=== PATIENT | female | born 1975 | race American Indian/Alaskan Native ===

== ENCOUNTER 2020-10-10 06:44 | Day surgery (SDC) | payer OTHER ==
[2020-10-10] MEDS ORDERED: fentaNYL 100 MCG/2 ML INJ ONE (07:03)
[2020-10-10] MEDS ORDERED: dexAMETHasone 20 MG/5 ML VIAL ONE (07:03)
[2020-10-10] MEDS ORDERED: LIDOCAINE MPF (2%) 20 MG/1 ML VIAL 5 ML ONE (07:03)
[2020-10-10] MEDS ORDERED: ONDANSETRON 4 MG/2 ML INJ ONE (07:03)
[2020-10-10] MEDS ORDERED: propofoL 200 MG/20 ML VIAL IV ONE (07:04)
[2020-10-10] MEDS ORDERED: SILVER NITRATE APPLICATOR 1 EA TP ONE (07:15)
[2020-10-10] MEDS ORDERED: METHYLERGONOVINE MALEATE 0.2 MG/ML VIAL IM ONE (07:17)
--- NOTE | 2020-10-10 07:19 | Short Stay Summary ---
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 The patient has been unable to have penetration of her vagina secondary to stenosis of the vagina. Pelvic ultrasound demonstrated evidence of a fluid collection in the vaginal vault measuring 7.3 cm. The patient denies any vaginal bleeding or any leakage of fluid from the vagina. She has been unable to have sexual intercourse for years. - History Principal diagnosis: Hematocolpos Past Medical History: No medical history Past Surgical History: Other (Myomectomy) Social history: - Allergies and Medications Current Medications: Allergies No Known Allergies Allergy (Unverified 09/25/20 10:14) Home Medications Medication Instructions Recorded Confirmed Last Taken Type No Known Home Medications [No 09/25/20 09/25/20 Unknown History Reported Home Medications] - Physical exam General appearance: no acute distress Integumentary: no rash HEENT: Atraumatic Lungs: Clear to auscultation Breasts: deferred Heart: Regular rate Gastrointestinal: normal Female Genitourinary: deferred Extremities: no ischemia Neurological: Normal gait - Brief post op/procedure progress note Date of procedure: 10/10/20 Pre-op diagnosis: Hematocolpos Post-op diagnosis: same Procedure: Exam under anesthesia Lysis of adhesions Evacuation of vaginal vault Posterior repair Anesthesia: TIARA Surgeon: MARYLIN MEDEIROS Estimated blood loss: other (150 mL) Pathology: none Condition: stable - Hospital course Hospital course: The patient was admitted the day of surgery. Please see operative note for details of surgery. Her postoperative course was uneventful. - Disposition Condition at discharge: Good Disposition: [id number] TO HOME OR SELFCARE Short Stay Discharge Plan Activity: other (Pelvic rest for 4 weeks) Diet: regular Additional Instructions: Patient needs to come in to the office tomorrow for removal of vaginal packing Patient can present to [facility] at 9 AM October 11, 2020 Prescriptions: Ibuprofen [Motrin] 800 mg PO Q8HR PRN #30 tablet PRN Reason: Pain , Severe (7-10) HYDROcodone/APAP 5-325 [[place] 5/325] 1 each PO Q6HR PRN #15 tablet PRN Reason: Pain
[2020-10-10] MEDS ORDERED: ceFAZolin/Water 2 GM/20 ML 2 GM/20 ML SYRINGE IV ONE (07:22)
--- NOTE | 2020-10-10 07:22 | Anesthesia Day of Surgery ---
Anesthesia Day of Surgery - Day of Surgery Patient Examined: Yes Patient H&P Reviewed: Yes Patient is NPO: Yes
--- NOTE | 2020-10-10 07:23 | Anesthesia Consultation ---
Anesthesia Consult and Med Hx Date of service: 10/10/20 - Airway Anesthetic Teeth Evaluation: Good ROM Head & Neck: Adequate Mental/Hyoid Distance: Adequate Mallampati Class: Class III Intubation Access Assessment: Probably Good - Pre-Operative Health Status ASA Pre-Surgery Classification: ASA1 Proposed Anesthetic Plan: General - Pulmonary Hx Smoking: No - Cardiovascular System Hx Hypertension: No - Central Nervous System Hx Psychiatric Problems: No - Endocrine Hx Renal Disease: No Hx Non-Insulin Dependent Diabetes: No Hx Thyroid Disease: No - Other Systems Hx Cancer: No Hx Obesity: Yes
[2020-10-10] MEDS ORDERED: LACTATED RINGERS 1,000 ML IV SCH (07:30)
[2020-10-10] MEDS ORDERED: ONDANSETRON 4 MG/2 ML INJ IV PRN (07:30)
[2020-10-10] MEDS ORDERED: ePHEDrine SULFATE 50 MG/1 ML INJ ONE (07:52)
[2020-10-10] MEDS ORDERED: METHYLENE BLUE 50 MG/10 ML AMP ONE (07:59)
[2020-10-10] MEDS ORDERED: CONJUGATED ESTROGENS VAG CREAM 30 GM VG ONE ×2 (07:59→08:17)
[2020-10-10] MEDS ORDERED: KETOROLAC 30 MG/1 ML INJ ONE (08:00)
[2020-10-10] MEDS ORDERED: GLYCOPYRROLATE 0.4 MG/2 ML INJ ONE (08:00)
[2020-10-10] MEDS ORDERED: MIDAZOLAM 2 MG/2 ML INJ IV NR (08:00)
[2020-10-10] MEDS ORDERED: PHENYLEPHRINE/NS 1,000 MCG/10 ML SYRINGE (OR USE) IV ONE (08:00)
[2020-10-10] MEDS ORDERED: HYDROmorphone 1 MG/1 ML INJ IV PRN ×2 (08:00)
[2020-10-10] MEDS ORDERED: SODIUM CHLORIDE 0.9% IRR 1,500 ML BOTTLE IR ONE (08:17)
[2020-10-10] MEDS ORDERED: HYDROmorphone 1 MG/1 ML INJ ONE (09:07)
--- NOTE | 2020-10-10 09:39 | Operative Report ---
Operative Report Operative Report: Date of procedure: October 10, 2020 Pre-operative diagnosis: Hematocolpos; vaginal stenosis Post-operative diagnosis: Same as above Procedure name(s): Exam under anesthesia; lysis of adhesions; evacuation of hematocolpos; posterior repair Surgeon: Anna Freire M.D. Estimated blood loss: 150 mL Anesthesia: LMA Findings Severely agglutinated vaginal vault; Indication: 45-year-old -0-2-1 with a history of inability to have intercourse secondary to vaginal stenosis. Pelvic ultrasound demonstrated a fluid collection within the vaginal vault consistent with hematocolpos. Procedure The patient was taken to the operating room and given LMA as anesthesia. She was prepped and draped in a normal sterile fashion. Prior to that a timeout was performed to confirm the patient and the procedure. After the prepping was performed the patient was placed in high lithotomy position. Exam under anesthesia revealed a severely agglutinated vaginal introitus. With sharp and blunt dissection the vaginal mucosa was incised. An incidental entry into the rectal tissue was performed during the lysis of adhesions. The Metzenbaum scissors were used in order to incise the vaginal mucosa which was severely agglutinated at the introitus. Upon entry into the vaginal vault it was noted to be a thick black material retained in the vaginal vault consistent with a prior hematoma. The vaginal vault contents were suctioned aggressively. The apex of the vaginal vault was severely agglutinated and unable to identify the cervix appropriately. The posterior vaginal wall was noted to be scarred with a thickened band. The vaginal scarring was incised with a scalpel in order to facilitate entry into the vaginal vault. A midline perineal incision was performed with the scalpel. Once the vaginal vault was adequately evacuated and irrigated repair of the rectal mucosa was performed. The repair was performed performed in similar fashion as if the patient had obtained 1/4 degree laceration. Posterior repair was performed in which the rectal mucosa was reapproximated with 3-0 Vicryl in a running fashion. A finger was placed in the rectum to facilitate reapproximation of the mucosal edges. Once the mucosa was reapproximated the overlying vaginal vaginal mucosa was reapproximated with 2-0 Vicryl in a running fashion. The perineal body was reapproximated and the subcutaneous tissue was reapproximated in similar fashion. A finger was again placed in the rectum to verify adequate closure of the defect. Premarin vaginal cream was applied to the vagina. A small vaginal packing was inserted without difficulty. The remainder the vaginal instruments were then removed. The patient was then successfully extubated and taken to the recovery room. All sponge laps and needle counts were correct x2.
[2020-10-10 11:32] VITALS: BP 121/66
--- NOTE | 2020-10-10 13:59 | Post Anesthesia Evaluation ---
- Post Anesthesia Evaluation Patient Participated: Yes Airway Patent: Yes Stable Respiratory Function: Yes Nausea/Vomiting: No Temp > 96.8F: Yes Pain Manageable: Yes Adequeate Hydration: Yes Anesthesia Complications: No Block Receding Appropriately: Not Applicable Patient on Ventilator: No
== END 2020-10-10 06:45 | disposition home or self-care (01) ==
LOC: OR 06:44
PROVIDERS: ATTEND Obstetrics & Gynecology
DX: N89.7 Hematocolpos (principal); N89.5 Stricture and atresia of vagina; E66.9 Obesity, unspecified; Z79.899 Other long term (current) drug therapy; Z90.49 Acquired absence of other specified parts of digestive tract; Z98.890 Other specified postprocedural states; Z68.32 Body mass index [BMI] 32.0-32.9, adult
CPT/HCPCS: 57023; 58999; 81025; J0690; J1100; J1170; J1885; J2210; J2250; J2370; J2405; J2704; J3010; J7120; Q9968